=== PATIENT | male | born 1975 | race American Indian/Alaskan Native ===

== ENCOUNTER 2017-06-06 05:35 | Emergency (ER) | payer OTHER ==
[2017-06-06 06:38] VITALS: BP 115/77
[2017-06-06] MEDS ORDERED: LIDOCAINE VISCOUS 2% PO ONE (07:12)
--- NOTE | 2017-06-06 07:16 | Emergency Department Report ---
ED General Adult HPI - General Chief complaint: Medical Clearance Stated complaint: CAN NOT SWALLOW Time Seen by Provider: 06/06/17 07:05 Source: patient, family, RN notes reviewed Mode of arrival: Ambulatory Limitations: No Limitations - History of Present Illness Initial comments: This is a 42-year-old male who was previously unknown to this provider. He presents to the ER with difficulty swallowing. He woke up feeling like this. He reports that it isn't pain with sensation. He reports that when he attempts to swallow he indicates "it feels like my throat is closing up." He then indicates that he subjectively feels like liquid goes to the left side, and he is able to swallow it. There is no headache, neck pain, chest pain, abdominal pain, shortness of breath, dysphonia, stridor. Patient states this is ever happened to him before, and he indicates no trauma. -: Gradual Consistency: intermittent Improves with: rest Worsens with: eating Associated Symptoms: denies other symptoms - Related Data Allergies Allergy/AdvReac Type Severity Reaction Status Date / Time No Known Allergies Allergy Unverified 06/06/17 05:46 ED Review of Systems ROS: Stated complaint: CAN NOT SWALLOW Other details as noted in HPI ED Past Medical Hx - Past Medical History Previous Medical History?: No - Surgical History Past Surgical History?: No - Social History Smoking Status: Never Smoker ED Physical Exam - General Limitations: No Limitations General appearance: alert, in no apparent distress - Head Head exam: Present: atraumatic, normocephalic - Eye Eye exam: Present: normal appearance, EOMI. Absent: nystagmus - ENT ENT exam: Present: normal exam, normal orophraynx, mucous membranes moist, TM's normal bilaterally, normal external ear exam, other (the patient is speaking in full sentences. there is no swelling noted to the back of her throat. There is no swelling to the uvula. The neck is supple with no meningeal signs, there is no pain with lateral manipulation of the trachea, there is no stridor.) - Neck Neck exam: Present: normal inspection, full ROM. Absent: tenderness, meningismus - Respiratory Respiratory exam: Present: normal lung sounds bilaterally. Absent: respiratory distress, wheezes, rales, rhonchi, stridor, chest wall tenderness, accessory muscle use, decreased breath sounds, prolonged expiratory - Cardiovascular Cardiovascular Exam: Present: regular rate, normal rhythm, normal heart sounds. Absent: bradycardia, tachycardia, irregular rhythm, systolic murmur, diastolic murmur, rubs, gallop - GI/Abdominal GI/Abdominal exam: Present: soft, normal bowel sounds. Absent: distended, tenderness, guarding, rebound, rigid, pulsatile mass - Rectal Rectal exam: Present: deferred - Extremities Exam Extremities exam: Present: normal inspection, full ROM, normal capillary refill. Absent: pedal edema, joint swelling, calf tenderness - Back Exam Back exam: Present: normal inspection, full ROM. Absent: tenderness, CVA tenderness (R), CVA tenderness (L), muscle spasm, paraspinal tenderness, vertebral tenderness - Neurological Exam Neurological exam: Present: alert, oriented X3, normal gait, other (Extraocular movements intact. Tongue midline. No facial droop. Facial sensation intact to light touch in the V1, V2, V3 distribution bilaterally. 5 and 5 strength in 4 extremities.. Sensation is intact to light touch in 4 extremities.). Absent : motor sensory deficit - Psychiatric Psychiatric exam: Present: normal affect, normal mood - Skin Skin exam: Present: warm, dry, intact, normal color. Absent: rash ED Course Vital Signs 06/06/17 06/06/17 06/06/17 05:44 05:51 06:00 Temperature 98.1 F Pulse Rate 73 78 79 Respiratory 18 18 16 Rate Blood Pressure 111/68 126/84 126/84 O2 Sat by Pulse 100 98 97 Oximetry 06/06/17 06/06/17 06:15 06:30 Temperature Pulse Rate 80 72 Respiratory 20 12 Rate Blood Pressure 116/80 115/77 O2 Sat by Pulse 96 98 Oximetry ED Medical Decision Making - Lab Data Vital Signs 06/06/17 06/06/17 06/06/17 05:44 05:51 06:00 Temperature 98.1 F Pulse Rate 73 78 79 Respiratory 18 18 16 Rate Blood Pressure 111/68 126/84 126/84 O2 Sat by Pulse 100 98 97 Oximetry 06/06/17 06/06/17 06:15 06:30 Temperature Pulse Rate 80 72 Respiratory 20 12 Rate Blood Pressure 116/80 115/77 O2 Sat by Pulse 96 98 Oximetry - Radiology Data Radiology results: image reviewed interpreted by me: Soft tissue neck x-ray is unremarkable. - Medical Decision Making Differential diagnosis: Dysphagia, hypopharyngeal lesion/mass Assessment and plan: 42-year-old male with reported difficulty in swallowing, patient able to drink water in front of me without difficulty. He is afebrile, with reassuring vital signs, has no other complaints, has a GCS of 15, with an NIH score of 0, protecting his airway. Soft tissue neck x-ray is unremarkable, I did offer the patient a barium swallow to further evaluate his dysphagia, but he declines and wants to follow up with outpatient ENT or gastroenterology. He is reliable, protecting his airway, has no imminent airway issues that I can detect on my thorough physical exam and history, and we'll therefore discharge him to follow-up as an outpatient. Return precautions are reviewed. Critical care attestation.: If time is entered above; I have spent that time in minutes in the direct care of this critically ill patient, excluding procedure time. ED Disposition Clinical Impression: Dysphagia Disposition: DC-01 TO HOME OR SELFCARE Is pt being admited?: No Does the pt Need Aspirin: No Condition: Stable Instructions: Chronic Dysphagia (ED) Additional Instructions: Follow up with either gastroenterology or otolaryngology within the next week. Return to the ER with pain, inability to speak, inability to swallow, fevers, chills, lethargy, irritability, projectile vomiting, change in mental status. Dr. Sunny Concepcion is a local otolaryngology specialist. Dr. Carlos is a local gastroenterology specialist. Referrals: AMANDO CARLOS MD [Staff Physician] - 3-5 Days VERONIQUE WILSON MD [Staff Physician] - 3-5 Days
--- NOTE | 2017-06-06 08:23 | XRay Report ---
FINAL REPORT EXAM: XR NECK SOFT TISSUE HISTORY: dysphagia,swelling COMPARISONS: None. FINDINGS: AP and lateral views of the neck Tracheal air column is within normal limits. Prevertebral soft tissues are also within normal limits. No radiodense foreign body. No hypo pharyngeal ballooning identified. Cervical spine is intact and normally aligned. IMPRESSION: Unremarkable soft tissue examination of the neck. Consider CT with contrast for further evaluation as warranted.
== END 2017-06-06 08:10 | disposition home or self-care (01) ==
LOC: ED 05:35
DX: R10.13 Epigastric pain (principal)
CPT/HCPCS: 70360; 99283